=== PATIENT | male | born 1975 | race African-American/Black ===

== ENCOUNTER 2017-03-01 16:00 | Emergency (ER) | payer SELFPAY ==
[~2017-03-01] VITALS: Ht 195.6 cm; Wt 112.0 kg
[~2017-03-01 16:00] MED LIST: HYDR12.56 PO; Z.0.NO CURRENT MEDS
[2017-03-01 16:07] VITALS: BP 134/81; PULSE 99; RESP 16; TEMP 101.6; O2SAT 96
[2017-03-01] MEDS ORDERED: TRAM50TA PO (16:24)
--- NOTE | 2017-03-01 16:28 | PD ---
HPI Chief Complaint: Cold / Flu Symptoms Time Seen by Provider: 16:15 Travel History International Travel<30 days: No Contact w/Intl Traveler<30days: No Traveled to known affect area: No History of Present Illness HPI This patient complains of flulike symptoms. He has runny nose and congestion and cough and sore throat and body aches and headache. Duration 2 days. Symptoms severity is moderate. No vomiting PFSH Social History Alcohol Use: No Tobacco Use: No Substance Use: No Allergies-Medications (Allergen,Severity, Reaction): Coded Allergies: No Known Allergies (Verified Adverse Reaction, Unknown, 03/01/17) Reported Meds & Prescriptions Reported Meds & Active Scripts Active Tramadol (Tramadol HCl) 50 Mg Tab 50 Mg PO Q6H PRN Review of Systems General / Constitutional: Positive: Fever HENT: Positive: Headaches, Sore Throat Cardiovascular: No: Chest Pain or Discomfort Respiratory: Positive: Cough Physical Exam Narrative GENERAL: Well-nourished, well-developed patient in no apparent distress. SKIN: Focused skin assessment reveals no rash and nodules. Skin is Warm and dry. HEAD: Atraumatic. Normocephalic. EYES: Pupils equal and round. No scleral icterus. No injection or drainage. ENT: No nasal bleeding or discharge. Mucous membranes pink and moist. NECK: Trachea midline. No JVD. CARDIOVASCULAR: Regular rate and rhythm. No murmur appreciated. RESPIRATORY: No accessory muscle use. Clear to auscultation. Breath sounds equal bilaterally. GASTROINTESTINAL: Abdomen soft, non-tender, nondistended. Hepatic and splenic margins not palpable. MUSCULOSKELETAL: No obvious deformities. No clubbing. No cyanosis. No edema. NEUROLOGICAL: Awake and alert. No obvious cranial nerve deficits. Motor grossly within normal limits. Normal speech. PSYCHIATRIC: Appropriate mood and affect; insight and judgment normal. Data Data Last Documented VS Vital Signs Date Time Temp Pulse Resp B/P (MAP) Pulse Ox O2 Delivery O2 Flow Rate FiO2 03/01/17 16:07 101.6 99 16 134/81 (98) 96 Orders Orders Acetaminophen (Tylenol) (03/01/17 16:30) Ibuprofen (Motrin) (03/01/17 16:30) Ketorolac Inj (Toradol Inj) (03/01/17 16:30) [facility] Medical Decision Making Medical Screen Exam Complete: Yes Emergency Medical Condition: Yes Medical Record Reviewed: Yes Differential Diagnosis Flu syndrome, bronchitis, pneumonia Narrative Course I have reviewed the patient's electronic medical record. Patient's presentation is very consistent with acute influenza type syndrome. We discussed actual testing of it and since it doesn't director project management we are opted to not do that. I gave him a dose of Tylenol or Motrin for fever. I gave him a dose of Toradol for body aches and headache. He is neurologically intact. No objective findings on exam other than clear rhinorrhea from both nostrils Tramadol written for myalgia and headache relief Warned about sedation Follow-up primary care and return if worse Diagnosis Primary Impression: Acute viral syndrome Additional Instructions: The patient was advised to follow up with their physician and return if they worsen. The patient was warned about potential sedation for the medications they will receive on prescription. Med/Other Pt SpecificInfo: Prescription(s) given Scripts Tramadol (Tramadol) 50 Mg Tab 50 MG PO Q6H Y for PAIN, #15 TAB 0 Refills Prov: Mukesh Thayer MD 03/01/17 Disposition: 01 DISCHARGE HOME Condition: Stable Mukesh Thayer MD Mar 01, 2017 16:28
[2017-03-01] MEDS ORDERED: KETOROLAC TROMETHAMINE 60 MG/2 ML (IM) VIAL IM ONE (16:30)
[2017-03-01] MEDS ORDERED: IBUPROFEN 600 MG TAB PO ONE (16:30)
[2017-03-01] MEDS ORDERED: ACETAMINOPHEN 500 MG CPLT PO ONE (16:30)
[2017-03-01 16:33] VITALS: BP 134/81; PULSE 96; RESP 20; TEMP 101.6; O2SAT 96
== END 2017-03-01 16:40 | disposition home or self-care (01) ==
LOC: PHED 16:00
DX: B34.9 Viral infection, unspecified (principal)
CPT/HCPCS: 96372; 99284; J1885